=== PATIENT | female | born 1995 | race African-American/Black ===

== ENCOUNTER 2019-03-20 00:44 | Emergency (ER) | payer MEDICAID ==
[~2019-03-20] VITALS: Ht 15.2 cm; Wt 156.8 kg
[2019-03-20 00:54] VITALS: BP 147/72; TEMP 97.2
[2019-03-20 01:41] LABS: STREP SCREEN NEGATIVE
[2019-03-20 02:39] VITALS: PULSE 90
== END 2019-03-20 02:39 | disposition home or self-care (01) ==
LOC: COL.ER 00:44
PROVIDERS: Physician Assistant
DX: M25.572 Pain in left ankle and joints of left foot (principal); F17.210 Nicotine dependence, cigarettes, uncomplicated